=== PATIENT | female | born 2000 | race Caucasian/White ===

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

== ENCOUNTER 2021-01-11 13:22 | Emergency (ER) | payer MEDICAID ==
[~2021-01-11] VITALS: Ht 157.5 cm; Wt 95.5 kg
[~2021-01-11 13:22] MED LIST: HYDR-3972 PO; LEVO750T46 PO
[2021-01-11] MEDS ORDERED: DOXY100C76 PO (15:58)
[2021-01-11] MEDS ORDERED: DOXYCYCLINE 100MG CAPSULE PO STA (16:45)
[2021-01-11 18:24] LABS: URINE HCG NEGATIVE (NEG)
[2021-01-11 18:35] VITALS: BP 108/65
== END 2021-01-11 18:36 | disposition home or self-care (01) ==
LOC: ER 13:23
DX: T81.89XA Other complications of procedures, not elsewhere classified, initial encounter (principal); F17.210 Nicotine dependence, cigarettes, uncomplicated; Z88.0 Allergy status to penicillin; Z79.899 Other long term (current) drug therapy
CPT/HCPCS: 76705; 81025; 99284

== ENCOUNTER 2021-02-03 12:44 | Emergency (ER) | payer MEDICAID ==
[~2021-02-03] VITALS: Ht 157.5 cm; Wt 70.9 kg
[2021-02-03 13:16] VITALS: BP 127/90
[2021-02-03] MEDS ORDERED: PERM60CR19 TP (13:39)
== END 2021-02-03 15:05 | disposition home or self-care (01) ==
LOC: ER 12:45
DX: B86 Scabies (principal); F15.90 Other stimulant use, unspecified, uncomplicated; Z90.49 Acquired absence of other specified parts of digestive tract; Z56.0 Unemployment, unspecified; Z88.0 Allergy status to penicillin; Z79.2 Long term (current) use of antibiotics; Z79.899 Other long term (current) drug therapy
CPT/HCPCS: 99283

== ENCOUNTER 2021-05-04 06:19 | Emergency (ER) | payer MEDICAID ==
[~2021-05-04] VITALS: Ht 157.5 cm; Wt 61.6 kg
[2021-05-04 07:29] LABS: BASOPHILS % (AUTO) 0.5 % (0-1); EOSINOPHILS # (AUTO) 0.1 X10'3 (0-0.9); EOSINOPHILS % (AUTO) 0.9 % (0-6); HEMATOCRIT 40.9 % (35.0-45.0); HEMOGLOBIN 13.9 g/dl (12.0-16.0); LYMPHOCYTES # (AUTO) 1.9 X10'3 (1.1-4.8); LYMPHOCYTES % (AUTO) 25.6 % (21-51); MEAN CORPUSCULAR VOLUME 85.1 FL (78-98); MEAN PLATELET VOLUME 8.3 FL (7.4-10.4); MONOCYTES # (AUTO) 0.4 X10'3 (0-0.9); MONOCYTES % (AUTO) 5.9 % (2-12); NEUTROPHILS % (AUTO) 67.1 % (42-75); PLATELET COUNT 319 X10'3 (140-440); RED BLOOD COUNT 4.81 X10'6 (4.20-5.60); RED CELL DISTRIBUTION WIDTH 13.5 % (11.5-14.5); WHITE BLOOD COUNT 7.5 X10'3 (4.5-11.0)
[2021-05-04 07:46] LABS: URINE HCG NEGATIVE (NEG)
[2021-05-04 07:48] LABS: ALANINE AMINOTRANSFERASE 19 U/L (12-78); ALBUMIN/GLOBULIN RATIO 0.7 (1.1-1.5); ALKALINE PHOSPHATASE 99 IU/L (20-180); ANION GAP 12 (8-16); ASPARTATE AMINO TRANSFERASE 13 U/L (10-37); BILIRUBIN,TOTAL 0.9 MG/DL (0.1-1.0); BLOOD UREA NITROGEN 15 MG/DL (7-18); BUN/CREATININE RATIO 20.5 (6.6-38.0); CHLORIDE 106 MMOL/L (99-107); CREATININE 0.73 MG/DL (0.40-0.90); GLUCOSE 87 MG/DL (70-104); POTASSIUM 3.2 MMOL/L (3.5-5.1); SODIUM 144 MMOL/L (135-145); TOTAL CARBON DIOXIDE 25.7 MMOL/L (24-32); TOTAL PROTEIN 7.1 G/DL (6.4-8.2); eGFR > 90 ML/MIN
[2021-05-04 07:54] LABS: URINE AMPHETAMINE SCREEN POSITIVE (Neg); URINE BARBITUATE SCREEN NEGATIVE (Neg); URINE BENZODIAZEPINES SCREEN NEGATIVE (Neg); URINE CANNABINOID SCREEN NEGATIVE (Neg); URINE COCAINE SCREEN NEGATIVE (Neg); URINE METHADONE SCREEN NEGATIVE (Neg); URINE OPIATE SCREEN NEGATIVE (Neg); URINE PHENCYCLIDINE SCREEN NEGATIVE (Neg)
[2021-05-04] MEDS ORDERED: iohexol 300mg/ml 100ml inj. ONE (08:19)
[2021-05-04] MEDS ORDERED: SULF1TAB49 PO (10:10)
[2021-05-04 10:44] VITALS: BP 108/75
== END 2021-05-04 10:47 | disposition home or self-care (01) ==
LOC: ER 06:20
DX: K91.89 Other postprocedural complications and disorders of digestive system (principal); Z88.0 Allergy status to penicillin; Z79.899 Other long term (current) drug therapy; Z56.0 Unemployment, unspecified
CPT/HCPCS: 36415; 74177; 80053; 80305; 81025; 84145; 85025; 99285; Q9967

== ENCOUNTER 2025-02-07 10:00 | Outpatient (CLI) | payer MEDICAID ==
[~2025-02-07 10:00] MED LIST changes: -LEVO750T46 PO; +LEVO750T68 PO
[2025-02-07] MEDS ORDERED: iohexol 300mg/ml 100ml inj. ONE (10:10)
--- NOTE | 2025-02-07 12:01 | RADIOLOGY REPORT ---
CLINICAL HISTORY: UNSP OPN WND ABD WALL, UNSP Q W/O PENET PERIT CAV, INIT TECHNIQUE: CT of the abdomen and pelvis was performed with IV contrast. This exam was performed according to our departmental dose optimization program. Up-to-date CT equipment and radiation dose reduction techniques are utilized as appropriate. CTDI 21 DLP 806 COMPARISON: CT ABDOMEN PELVIS on DOS: 05/04/21, CT ABDOMEN PELVIS on DOS: 12/26/20 FINDINGS: Evaluatin is limited, given the inferior most pelvis was not imaged. Abdomen/Pelvis: The liver, spleen, pancrease, kidneys, adrenal glands, bladder, and uterus are unremarkable. The gallbladder is surgically absent. There is mild scarring in the lower left abdominal wall subcuteanous fat. The abdominal aorta is normal in course and caliber. There are no significant atherosclerotic calcifications. There is no free intraperitoneal air or fluid. There is no enlarged abdominal or pelvic lymph node. There is no bowel wall thickening or dilatation. The appendix is normal. Other: The imaged lower thorax is unremarkable. No acute osseous abnormality is evident. IMPRESSION: Limited exam with no acute abnormality. Cholecystectomy.
== END 2025-02-07 23:59 | disposition home or self-care (01) ==
LOC: RAD 10:00
PROVIDERS: ATTEND Family Medicine
DX: S31.109A Unspecified open wound of abdominal wall, unspecified quadrant without penetration into peritoneal cavity, initial encounter (principal); J98.4 Other disorders of lung; Z90.49 Acquired absence of other specified parts of digestive tract; X58.XXXA Exposure to other specified factors, initial encounter; Y93.89 Activity, other specified; Y92.89 Other specified places as the place of occurrence of the external cause; Y99.8 Other external cause status
CPT/HCPCS: 74160; A6258; Q9967